=== PATIENT | male | born 1965 | race Caucasian/White ===

== ENCOUNTER 2019-09-02 09:48 | Emergency (ER) | payer SELFPAY ==
[~2019-09-02] VITALS: Ht 167.6 cm; Wt 63.5 kg
--- NOTE | 2019-09-02 09:51 | NUR ---
Patient [facility] accompanied by Vee MCKEON, transferred to bed 12. RN evaluating patient at bedside.
[2019-09-02 09:55] VITALS: BP 142/82
--- NOTE | 2019-09-02 10:01 | NUR ---
54 Y/O MALE BIBA FOR "APPEARING" ALTERED. PT IS AAOX4. PT STATES HE IS "TIRED", PT IS HOMELESS. NO DISTRESS NOTED AT THIS TIME. RESP EVEN AND UNLABORED PT IS POOR HISTORIAN AND UNABLE TO PROVIDE ME WITH ALLERGY INFORMATION VSS
--- NOTE | 2019-09-02 10:35 | NUR ---
ERMD EVALUATING PT AT BEDSIDE
[2019-09-02 11:01] LABS: BASOPHILS % (AUTO) 0.6 % (0.0-2.0); EOSINOPHILS # (AUTO) 0.2 K/uL (0-0.4); EOSINOPHILS % (AUTO) 4.4 % (0.0-4.0); HEMOGLOBIN 14.4 g/dL (12.0-18.0); LYMPHOCYTES % (AUTO) 21.5 % (20.5-51.1); MEAN CORPUSCULAR HEMOGLOBIN 31 pg (27-31); MEAN CORPUSCULAR HGB CONC 34 g/dL (33-37); MEAN CORPUSCULAR VOLUME 90.9 fL (80-94); MONOCYTES # (AUTO) 0.3 K/uL (0.8-1.0); MONOCYTES % (AUTO) 7.3 % (1.7-9.3); NEUTROPHILS # (AUTO) 3.1 K/uL (1.8-7.7); NEUTROPHILS % (AUTO) 66.2 % (42.2-75.2); PLATELET COUNT (AUTO) 199 K/uL (140-450); RED BLOOD CELL COUNT(AUTO) 4.73 MIL/uL (4.20-6.10); RED CELL DISTRIBUTION WIDTH 13.2 % (11.6-13.7); WHITE BLOOD COUNT (AUTO) 4.7 K/uL (4.8-10.8)
[2019-09-02 11:27] LABS: ALBUMIN 3.3 g/dL (3.4-5.0); ANION GAP 12.2 (8-16); ASPARTATE AMINOTRANSFERASE 43 U/L (15-37); CARBON DIOXIDE 27.6 mmol/L (21-32); CHLORIDE 107 mmol/L (98-107); CREATININE 0.8 mg/dL (0.6-1.3); GFR ARICAN-AMERICAN 131 mL/min (>90); GLUCOSE 81 mg/dL (74-106); POTASSIUM 3.8 mmol/L (3.5-5.1); SODIUM SERUM 143 mmol/L (136-145); TOTAL BILIRUBIN 0.6 mg/dL (0.0-1.0); UREA NITROGEN, BLOOD 11 mg/dL (7-18)
--- NOTE | 2019-09-02 12:35 | NUR ---
clinical services consultant contacted and waiting for them to speak with patient prior to discharge.
--- NOTE | 2019-09-02 12:42 | NUR ---
[facility] social worker at bedside speaking with patient.
--- NOTE | 2019-09-02 12:46 | NUR ---
TRANSITION ASSISTANT NOTE: SW WENT TO MEET PATIENT AT BEDSIDE. SW ATTEMPTED TO CONDUCT ASSESSMENT BUT PATIENT WAS UNCOOPERATIVE. PATIENT REFUSED TO SPEAK TO SW AND PUT BLANKET OVER HIS HEAD. SW LEFT HOMELESS RESOURCES AT BEDSIDE.
--- NOTE | 2019-09-02 13:06 | NUR ---
IV removed, catheter intact and site benign. Applied folded 4x4 gauze and tape to stop bleeding.
--- NOTE | 2019-09-02 13:06 | NUR ---
Patient given written and verbal discharge instructions and verbalizes understanding. Given copies of tests performed during visit. Patient is awake, alert and oriented. Ambulatory with steady gait. Refuses offer of half-way placement. Refused to speak to child protective services social worker. Given list of available shelters in surrounding areas. Pt provided with meal sack and left facility.
[2019-09-02 13:11] VITALS: BP 138/80
--- NOTE | 2019-09-02 13:12 | NUR ---
Patient discharged with v/s stable. Written and verbal after care instructions given and explained. Patient verbalized understanding. Ambulatory with steady gait. All questions addressed prior to discharge. Advised to follow up with PMD. PT PROVIDED WITH A HOMELESS PACKET INFORMATION ; PROVIDED WITH FOOD ; APPROPIATE DRESSED FOR WEATHER.
== END 2019-09-02 13:12 | disposition home or self-care (01) ==
LOC: MED 09:48
DX: R53.83 Other fatigue (principal)
CPT/HCPCS: 36415; 80053; 85025; 99283; G0482